=== PATIENT | male | born 1940 | race Hispanic/Latino ===

== ENCOUNTER 2017-03-31 20:23 | Inpatient (IN) | payer MEDICARE ==
[2017-03-31 20:24] VITALS: BMI 29.2
--- NOTE | 2017-03-31 20:49 | ED PDOC ---
Arrival/HPI - General Chief Complaint: Chest Pain Time Seen by Provider: 03/31/17 20:35 Historian: Patient - History of Present Illness Narrative History of Present Illness (Text): 03/31/17 20:51 A 77 year old female, whose past medical history includes hypertension and CAD with stents, presents to the emergency department from home with chest pain prior to arrival. Patient describes it as burning and midsternal pain. Patient had a recent stent in 2011. Patient in mild discomfort currently. Patient notes took nitro prior to arrival. Patient denies any other complaints at this time. Time/Duration: Prior to Arrival Symptom Onset: Sudden Symptom Course: Unchanged Quality: Burning Activities at Onset: Rest Context: Home Associated Symptoms (Text): none Past Medical History - Provider Review Nursing Documentation Reviewed: Yes - Tetanus Immunization Tetanus Immunization: Unknown - Cardiac Hx Pacemaker: No - Pulmonary Hx Respiratory Disorders: No - Neurological Hx Paralysis: No - HEENT Hx HEENT Disorder: Yes - Renal Hx Renal Disorder: No - Endocrine/Metabolic Hx Endocrine Disorders: Yes Hx Diabetes Mellitus Type 2: Yes - Hematological/Oncological Hx Blood Transfusions: No Hx Blood Transfusion Reaction: No - Integumentary Hx Dermatological Disorder: No - Musculoskeletal/Rheumatological Hx Musculoskeletal Disorders: Yes (arthritis) - Gastrointestinal Hx Gastrointestinal Disorders: Yes - Genitourinary/Gynecological Hx Genitourinary Disorders: Yes (frequent urination) Hx Hematuria: Yes - Psychiatric Hx Emotional Abuse: No Hx Physical Abuse: No Hx Substance Use: No - Surgical History Other/Comment: CYSTOSCOPY - Anesthesia Hx Anesthesia Reactions: No Hx Malignant Hyperthermia: No - Suicidal Assessment Feels Threatened In Home Enviroment: No Family/Social History - Physician Review Nursing Documentation Reviewed: Yes Family/Social History: No Known Family HX Smoking Status: Never Smoked Hx Alcohol Use: No Hx Substance Use: No Hx Substance Use Treatment: No Allergies/Home Meds Allergies/Adverse Reactions: Allergies No Known Allergies Allergy (Verified 04/26/16 12:03) Home Medications: Home Meds Medication Instructions Recorded Confirmed Aspirin 81 mg PO DAILY 08/01/12 04/01/17 Isosorbide 20 mg PO QID 08/01/12 04/01/17 Mesalamine [Pentasa] 2,000 mg PO QID 08/01/12 04/01/17 Metoprolol Tartrate 50 mg PO BID 08/01/12 04/01/17 Ramipril [Altace] 10 mg PO DAILY 08/01/12 04/01/17 Clopidogrel [Plavix] 75 mg PO DAILY 06/17/14 04/01/17 Rosuvastatin Calcium [Crestor] 10 mg PO DAILY 04/23/16 04/01/17 Glipizide [Glipizide Xl] 10 mg PO DAILY 04/25/16 04/01/17 Metformin HCl [Metformin HCl] 500 mg PO BID 04/25/16 04/01/17 Review of Systems - Physician Review All systems were reviewed & negative as marked: Yes - Review of Systems Constitutional: absent: Fevers Respiratory: absent: SOB Cardiovascular: Chest Pain Physical Exam Vital Signs Reviewed: Yes Vital Signs Temp Pulse Resp BP Pulse Ox 04/01/17 01:44 85 20 147/69 97 03/31/17 20:38 97.9 F 97 H 16 155/83 H 99 Temperature: Afebrile Blood Pressure: Hypertensive Pulse: Regular Respiratory Rate: Normal Appearance: Positive for: Non-Toxic, Comfortable, Other (obese) Pain Distress: None Mental Status: Positive for: Alert and Oriented X 3 - Systems Exam Head: Present: Atraumatic, Normocephalic Pupils: Present: PERRL Extroacular Muscles: Present: EOMI Conjunctiva: Present: Normal Mouth: Present: Moist Mucous Membranes Neck: Present: Normal Range of Motion Respiratory/Chest: Present: Clear to Auscultation, Good Air Exchange. No: Respiratory Distress, Accessory Muscle Use Cardiovascular: Present: Regular Rate and Rhythm, Normal S1, S2. No: Murmurs Abdomen: Present: Normal Bowel Sounds. No: Tenderness, Distention, Peritoneal Signs Back: Present: Normal Inspection Upper Extremity: Present: Normal Inspection. No: Cyanosis, Edema Lower Extremity: Present: Normal Inspection. No: Edema Neurological: Present: GCS=15, CN II-XII Intact, Speech Normal Skin: Present: Warm, Dry, Normal Color. No: Rashes Psychiatric: Present: Alert, Oriented x 3, Normal Insight, Normal Concentration Medical Decision Making ED Course and Treatment: 03/31/17 20:43 Impression: A 77 year old male with chest pain. Differential Diagnosis included but are not limited to: Plan: -- EKG -- chest xray -- labs -- Urinalysis -- Aspirin -- Reassess and disposition Prior Visits: Notes and results from previous visits were reviewed. Patient last reported to the emergency department on 04/26/16 for evaluation of suprapubic pressure. Progress Notes: EKG: Ordered, reviewed, and independently interpreted the EKG. Rate : 98 BPM Rhythm : NSR Interpretation : Nonspecific ST/T wave changes, old RBBB block Comparison : No previous EKG for comparison. 03/31/17 22:39 pt chest pain free. cxr shows ?perihilar infiltrate as per vrad. pt reports mild cough and "post nasal drip". will cover empirically. - Lab Interpretations Lab Results: 03/31/17 21:00 03/31/17 21:00 Lab Results 03/31/17 21:50: Urine Color Yellow, Urine Appearance Clear, Urine pH 6.0, Ur Specific [place] 1.025, Urine Protein Negative, Urine Glucose (UA) 250 H, Urine Ketones Negative, Urine Blood Moderate H, Urine Nitrate Negative, Urine Bilirubin Negative, Urine Urobilinogen 0.2, Ur Leukocyte Esterase Negative, Urine RBC 2 - 5, Urine WBC 0 - 2, Ur Epithelial Cells 0 - 2 03/31/17 21:00: Sodium 137, Potassium 4.6, Chloride 102, Carbon Dioxide 26, Anion Gap 14, BUN 24 H, Creatinine 1.1, Est GFR ( Amer) > 60, Est GFR ( Non-Af Amer) > 60, Random Glucose 288 H, Calcium 9.4, Magnesium 1.6 L, Total Bilirubin 0.6, AST 28, ALT 40, Alkaline Phosphatase 45, Lactate Dehydrogenase 323 L, Total Creatine Kinase 112, Troponin I 0.01, Total Protein 6.4, Albumin 4.0, Globulin 2.4, Albumin/Globulin Ratio 1.7 03/31/17 21:00: PT 11.7, INR 1.08, APTT 27.1 03/31/17 21:00: WBC 6.0, RBC 3.45 L, Hgb 12.3 L, Hct 35.6 L, MCV 103.2, MCH 35.7 H, MCHC 34.6, RDW 13.3, Plt Count 125, MPV 11.3 H, Gran % 69.4 H, Lymph % ( Auto) 20.9 L, [place] % (Auto) 7.2 H, Eos % (Auto) 2.3, Baso % (Auto) 0.2, Gran # 4.14, Lymph # 1.3, [place] # 0.4, Eos # 0.1, Baso # 0.01 I have reviewed the lab results: Yes - RAD Interpretation Radiology Orders: 03/31/17 20:41 CHEST PORTABLE [RAD] Stat - EKG Interpretation Interpreted by ED Physician: Yes Type: 12 lead EKG - Medication Orders Current Medication Orders: Aspirin (Aspirin Chewable) 81 mg PO DAILY [facility] Last Admin: 04/01/17 10:48 Dose: 81 mg Atorvastatin Calcium (Lipitor) 40 mg PO DAILY [facility] Last Admin: 04/01/17 10:48 Dose: 40 mg Clopidogrel Bisulfate (Plavix) 75 mg PO DAILY [facility] Last Admin: 04/01/17 10:48 Dose: 75 mg Glipizide (Glucotrol Xl) 10 mg PO DAILY [facility] Last Admin: 04/01/17 10:48 Dose: 10 mg Insulin Human Regular (Humulin R Low) 0 units SC [facility] PRN Reason: Protocol Last Admin: 04/01/17 12:04 Dose: 3 units Isosorbide Dinitrate (Isordil) 20 mg PO QID [facility] Levofloxacin (Levaquin) 500 mg PO DAILY [facility] Last Admin: 04/01/17 10:48 Dose: 500 mg Magnesium Oxide (Mag-Ox) 400 mg PO BID [facility] Last Admin: 04/01/17 10:48 Dose: 400 mg Mesalamine (Pentasa) 500 mg PO QID [facility] Last Admin: 04/01/17 10:48 Dose: 500 mg Metoprolol Tartrate (Lopressor) 50 mg PO BID [facility] Last Admin: 04/01/17 10:48 Dose: 50 mg Ramipril (Altace) 10 mg PO DAILY [facility] Last Admin: 04/01/17 10:48 Dose: 10 mg Discontinued Medications Aspirin (Aspirin) 325 mg PO STAT STA Stop: 03/31/17 20:42 Last Admin: 03/31/17 21:01 Dose: 325 mg Levofloxacin/Dextrose (Levaquin 750mg) 750 mg IVPB STAT STA Stop: 03/31/17 22:38 Last Admin: 03/31/17 23:16 Dose: 750 mg - Scribe Statement The provider has reviewed the documentation as recorded by the Loren Cerna Provider Scribe Attestation: All medical record entries made by the Scribe were at my direction and personally dictated by me. I have reviewed the chart and agree that the record accurately reflects my personal performance of the history, physical exam, medical decision making, and the department course for this patient. I have also personally directed, reviewed, and agree with the discharge instructions and disposition. Disposition/Present on Arrival - Present on Arrival Any Indicators Present on Arrival: No History of DVT/PE: No History of Uncontrolled Diabetes: No Urinary Catheter: No History of Decub. Ulcer: No History Surgical Site Infection Following: None - Disposition Have Diagnosis and Disposition been Completed?: Yes Diagnosis: Chest pain Disposition: HOSPITALIZED Disposition Time: 22:40 Patient Problems: Current Active Problems Problem Status Onset Chest pain Acute Condition: STABLE
[2017-03-31 21:09] LABS: ADD MANUAL DIFF? NO
[2017-03-31 21:25] LABS: INR 1.08 (0.93-1.08); PARTIAL THROMBOPLASTIN TIME 27.1 Seconds (23.7-30.8)
[2017-03-31 21:30] LABS: ALB/GLOB RATIO 1.7 (1.1-1.8); ALKALINE PHOSPHATASE 45 U/L (38-133); ALT/SGPT 40 U/L (7-56); AST/SGOT 28 U/L (15-59); BILIRUBIN,TOTAL 0.6 mg/dL (0.2-1.3); BLOOD UREA NITROGEN 24 mg/dL (7-21); CALCIUM 9.4 mg/dL (8.4-10.5); CARBON DIOXIDE 26 mmol/L (21-33); CHLORIDE 102 mmol/L (98-107); GFR AFRICAN-AMERICAN > 60; GLUCOSE,RANDOM 288 mg/dL (70-110); MAGNESIUM 1.6 mg/dL (1.7-2.2); POTASSIUM 4.6 mmol/L (3.6-5.0); SODIUM 137 mmol/L (132-148); TOTAL PROTEIN 6.4 g/dL (5.8-8.3)
[2017-03-31 21:41] LABS: BASO # 0.01 K/mm3 (0.0-2.0); BASO % 0.2 % (0.0-3.0); EOS # 0.1 (0.0-0.7); EOS % 2.3 % (1.5-5.0); GRAN # 4.14 (1.4-6.5); GRAN % 69.4 % (50.0-68.0); HEMATOCRIT 35.6 % (42.0-52.0); LYMPH # 1.3 (1.2-3.4); LYMPH % 20.9 % (22.0-35.0); MEAN CELL VOLUME 103.2 fL (80.0-105.0); MEAN CORPUSCULAR HEMOGLOBIN 35.7 pg (25.0-35.0); MEAN CORPUSCULAR HGB CONC 34.6 g/dl (31.0-37.0); MEAN PLATELET VOLUME 11.3 fl (7.0-11.0); MONO # 0.4 (0.1-0.6); MONO % 7.2 % (1.0-6.0); PLATELET COUNT 125 10^3/uL (120.0-450.0); RED CELL DISTRIBUTION WIDTH 13.3 % (11.5-14.5)
[2017-03-31 22:04] LABS: TROPONIN I 0.01 ng/mL
[2017-03-31 22:09] LABS: URINE BILIRUBIN NEGATIVE (NEGATIVE); URINE BLOOD MODERATE (NEGATIVE); URINE GLUCOSE (UA) 250 mg/dL (NEGATIVE); URINE KETONE NEGATIVE (NEGATIVE); URINE LEUKOCYTE ESTERASE NEGATIVE Leu/uL (NEGATIVE); URINE PROTEIN NEGATIVE mg/dL (<30 mg/dL); URINE UROBILINOGEN 0.2 E.U./dL (<1 E.U./dL)
[2017-03-31 22:10] LABS: URINE APPEARANCE CLEAR (CLEAR); URINE COLOR YELLOW (YELLOW)
--- NOTE | 2017-03-31 22:35 | RAD ---
EXAM: XR Chest, 1 View CLINICAL HISTORY: 77 years old, male; Pain; Chest pain; Additional info: Cp TECHNIQUE: Frontal view of the chest. EXAM DATE/TIME: 03/31/2017 8:41 PM COMPARISON: No relevant prior studies available. FINDINGS: The mediastinal cardiac silouette is normal in size. There are increased markings in the right perihilar region concerning for developing infectious infiltrate. No effusions are identified. The osseous structures are normal. IMPRESSION: Probable right perihilar infiltrate. Clinical correlation recommended.
[2017-03-31 22:37] LABS: URINE EPITHELIAL CELLS 0 - 2 /hpf (0-5); URINE WBC 0 - 2 /hpf (0-6)
[2017-03-31] MEDS ORDERED: levoFLOXacin 750 mg in D5W 150 ML BAG IVPB STA (22:37)
--- NOTE | 2017-04-01 10:30 | HP ---
CHIEF COMPLAINT AND HISTORY OF PRESENT ILLNESS: This is a 77-year-old male who is coming into the [facility] with a past medical history of coronary artery disease with stents and hypertension, complaini ng of chest pain. The patient says he was having substernal chest pain. It was more of a burning se nsation. He says he took his nitro, but did not completely resolve his pain. He has no nausea, no f trenton, no chills, no abdominal pain, no back pain, no dysuria or frequency. It was 4/10. REVIEW OF SYSTEMS: All other review of symptoms are within normal limits except as mentioned. ALLERGIES: No known drug allergies. HOME MEDICATIONS: Aspirin, isosorbide, mesalamine, metoprolol, ramipril, Plavix, Crestor, glipizide, metformin. PAST MEDICAL HISTORY: 1. Coronary artery disease with stent. 2. Diabetes type 2. 3. Colitis. PAST SURGICAL HISTORY: Cholecystectomy. SOCIAL HISTORY: He does not smoke. He drinks socially. He is retired. He lives at home with his w ene. FAMILY HISTORY: His mother in her late 80s of an enlarged heart. Father had an NE in his early 40s. He does have a history of diabetes in the family. PHYSICAL EXAMINATION: VITAL SIGNS: He has a temperature of 98.6, pulse of 92, blood pressure 125/56, respirations 20, O2 s aturation 96%. Height is 5 feet 7, weight is 188 pounds, BMI is 29.4. GENERAL: Patient lying in bed, flat, and in no apparent distress. HEAD AND NECK EXAM: Atraumatic, normocephalic. Conjunctivae are pink. Throat clear and mouth with moist mucosa. Oropharynx benign. EYES: Extraocular movements are intact. PERRLA. NECK: Supple. No JVD, thyromegaly, or adenopathy. No bruits. HEART: S1 and S2 regular rate and rhythm. No murmurs, rubs, or gallops. LUNGS: Clear to auscultation bilaterally. No wheezing rales or rhonchi appreciated. No retraction s on exam. ABDOMEN: Soft, nontender, nondistended. Bowel sounds are positive in all quadrants. No rebound. No hepatosplenomegaly. EXTREMITIES: No cyanosis, clubbing, or edema. NEURO: No facial asymmetry, tongue is midline, no uvula deviation. Power is 5/5 in upper extremity and 5/5 in lower extremity. Sensation is normal in upper extremity and lower extremity. PSYCH: Awake, alert, oriented x3. No anxiety or depression symptoms. Good insight. Normal affec t. : No CVA tenderness VASCULAR: 2+ pulses in carotid and pedal pulses. SKIN: No erythema or abnormal nodules noted. SPINE: Normal curvature. LYMPHADENOPATHY: No anterior cervical or posterior cervical adenopathy. No inguinal adenopathy. LABORATORY DATA: White count of 6.0, hemoglobin 12.3, platelet count is 125. He has an INR of 1.08. His troponin is 0.01. Creatinine is 1.1. He has a urine that shows blood that is moderate, nitri flakita are negative, bilirubin is negative. Chest x-ray done shows probable right perihilar infiltrate. EKG done shows a heart rate of 98, sinus rhythm. No ST-T changes. ASSESSMENT: 1. Chest pain. 2. Possible pneumonia, community acquired. 3. Diabetes type 2. 4. Dyslipidemia. 5. Coronary artery disease. 6. Hypertension. PLAN: The patient is going to be admitted to the hospital. He is going to be evaluated by Dr. Fredis cabrera. The patient is going to have a repeat troponin. He is going to be on aspirin. He is going to be on ramipril for his hypertension. He is going to continue with his isosorbide. He is on Lipitor fo r dyslipidemia. He is going to be on his Plavix. He is on mesalamine. This will be continued. He is on a heart healthy diet. He was given Levaquin for antibiotics. We will await further input from cardiology. Dominguez Garcia MD cc: [id number] TT: 04/01/2017 10:28:47 ana maría
--- NOTE | 2017-04-01 10:44 | CARD ---
APPROVED REPORT EKG Measurement Heart [id number] <Conclusion> Normal sinus rhythm Right bundle branch block Left posterior fascicular block Bifascicular block Possible Inferior infarct, old STTW changes
[2017-04-01] MEDS: levoFLOXacin 500 MG TAB PO SCH (10:48)
[2017-04-01] MEDS: Magnesium Oxide 400 mg Tab UD PO SCH ×2 (10:48→17:49)
[2017-04-01] MEDS: Mesalamine ER Cap 500 MG PO SCH ×4 (10:48→23:13)
[2017-04-01] MEDS: GlipiZIDE 10 mg SR Tab PO SCH (10:48)
--- NOTE | 2017-04-01 11:04 | CON ---
DATE: 04/01/2017 INDICATIONS: Chest pain, NSTEMI. HISTORY OF PRESENT ILLNESS: This is a 77-year-old man, well known to me, who presented yesterday with a sudden onset of an upper substernal discomfort which did not respond to nitroglycerin at home. He came to the Emergency Room and was evaluated and admitted to telemetry. His second troponin is elevated. The chest pain has resolved. He feels comfortable this morning. There was no shortness of breath, orthopnea, PND, syncope, presyncope, lightheadedness, dizziness, vertigo, palpitations, edema, claudication. PAST MEDICAL HISTORY: Notable for coronary artery disease. He has a remote myocardial infarction and multiple coronary artery stents. He has a known occluded circumflex artery. He has a history of hypertension, diabetes, right bundle branch block, renal stones, GERD and gallbladder surgery. There is no history of rheumatic fever, congestive heart failure, arrhythmia, stroke, TIA or gout. He does have moderate LV dysfunction with an LV ejection fraction of about 35%. MEDICATIONS: At the time of admission included aspirin, isosorbide, Pentaza, metoprolol, ramipril, Plavix, Crestor, glipizide, metformin. ALLERGIES: There are no medication allergies reported. He lives at home. He is retired. He does not smoke cigarettes. He does not drink alcohol significantly. FAMILY HISTORY: Noncontributory. REVIEW OF SYSTEMS: A 10-point otherwise unremarkable except as noted above. PHYSICAL EXAMINATION: GENERAL: He is a well-developed male, lying in bed on telemetry, in no acute distress. VITAL SIGNS: Notable for sinus rhythm at 92 beats per minute. He is afebrile. Blood pressure 125/56, respirations 20, O2 sat 96% on room air. HEENT: Reveals no neck vein distention, thyromegaly, or carotid bruits. Mucous membranes moist. Conjunctivae pink. NECK: Supple. LUNG HILLMAN: Few scattered rhonchi. HEART: Revealed normal first and second heart sounds. There is a soft systolic murmur along the left sternal border. PMI is not palpable. ABDOMEN: Soft, bowel sounds present. No mass, organomegaly, tenderness, rebound, guarding. No CVA tenderness. No palpable abdominal aortic aneurysm. EXTREMITIES: Revealed no cyanosis, clubbing, or edema. NEUROLOGIC: He was awake, alert and oriented. SKIN: Warm and dry. No rash or cellulitis. PSYCHIATRIC: Normal as to mood and affect. LABORATORY AND IMAGING: A chest x-ray revealed a probable right perihilar infiltrate. EKG revealed sinus rhythm with right bundle branch block, ST-T wave changes are noted. White count normal, platelet count normal, hemoglobin 12.3, hematocrit 35.6. PT, INR, PTT unremarkable. Electrolytes, BUN, creatinine, blood sugar unremarkable. Follow up blood sugar 205. Magnesium 1.6. LFTs unremarkable. CK 112. Troponin 0.01, repeat 2.20. Urinalysis is abnormal as noted. IMPRESSION: This is a 77-year-old man who came in with typical chest pain, consistent with chest pain he had prior to previous stenting. His second troponin is elevated. Additionally, there is a right perihilar infiltrate on his portable chest x-ray. His urinalysis is abnormal. At this time, I have discussed the case with Dr. Garcia. We will plan a cardiac catheterization, probably on Tuesday. We will get serial EKGs and enzymes. I will continue his usual cardiac meds including aspirin, ramipril, isosorbide, Lipitor, metoprolol and Plavix. We will hold metformin pending the cardiac catheterization on Tuesday. He is getting antibiotics. A followup chest x-ray will be arranged. Urine should be cultured. We will replace magnesium. He can be out of bed to a chair. We will monitor I's and O's. We will check stool for occult blood. I will follow along with you. I will make additional recommendations based on his clinical course. Ta Guerrier MD cc: [id number] TT: 04/01/2017 11:04:04 Confirmation # [id number] Dictation # [id number] MTDD
[2017-04-01] MEDS: Insulin Reg-LOW-Coverage SC SCH ×3 (12:04→21:59)
--- NOTE | 2017-04-01 14:43 | CARD ---
APPROVED REPORT EKG Measurement Heart [id number] [place] [id number] [id number] <Conclusion> Sinus rhythm with 1st degree AV block Right bundle branch block Left posterior fascicular block Bifascicular block Inferior infarct, age undetermined T wave abnormality, consider lateral ischemia
[2017-04-02 07:46] LABS: TROPONIN I 0.88 ng/mL
--- NOTE | 2017-04-02 08:18 | CP.PCM.PN ---
Subjective - Date & Time of Evaluation Date of Evaluation: 04/02/17 Time of Evaluation: 07:00 - Subjective Subjective: Stable on 2R. No CP or SOB. V/S noted. RSR PE: Lungs: clear Cor.: S1S2 Abd.: soft Ext.: no edema Neuro.: alert Labs noted. trop = 0.88 ECG 04/01 noted: RSR,RBBB, LPHB, IMI, STTW changes Objective - Vital Signs/Intake and Output Vital Signs (last 24 hours): Temp Pulse Resp BP Pulse Ox 98.4 F 74 20 111/58 L 94 L 04/02/17 06:00 04/02/17 06:00 04/02/17 06:00 04/02/17 06:00 04/02/17 06:00 - Medications Medications: Current Medications Aspirin (Aspirin Chewable) 81 mg PO DAILY [facility] Last Admin: 04/01/17 10:48 Dose: 81 mg Atorvastatin Calcium (Lipitor) 40 mg PO DAILY [facility] Last Admin: 04/01/17 10:48 Dose: 40 mg Clopidogrel Bisulfate (Plavix) 75 mg PO DAILY [facility] Last Admin: 04/01/17 10:48 Dose: 75 mg Glipizide (Glucotrol Xl) 10 mg PO DAILY [facility] Last Admin: 04/01/17 10:48 Dose: 10 mg Insulin Human Regular (Humulin R Low) 0 units SC [facility] PRN Reason: Protocol Last Admin: 04/01/17 21:59 Dose: Not Given Isosorbide Dinitrate (Isordil) 20 mg PO QID [facility] Last Admin: 04/01/17 23:14 Dose: 20 mg Levofloxacin (Levaquin) 500 mg PO DAILY [facility] Last Admin: 04/01/17 10:48 Dose: 500 mg Magnesium Oxide (Mag-Ox) 400 mg PO BID [facility] Last Admin: 04/01/17 17:49 Dose: 400 mg Mesalamine (Pentasa) 500 mg PO QID [facility] Last Admin: 04/01/17 23:13 Dose: 500 mg Metoprolol Tartrate (Lopressor) 50 mg PO BID [facility] Last Admin: 04/01/17 17:49 Dose: 50 mg Ramipril (Altace) 10 mg PO DAILY [facility] Last Admin: 04/01/17 10:48 Dose: 10 mg - Labs Labs: PT 11.7 Seconds (9.9-11.8) 03/31/17 21:00 INR 1.08 (0.93-1.08) 03/31/17 21:00 APTT 27.1 Seconds (23.7-30.8) 03/31/17 21:00 Assessment and Plan - Assessment and Plan (Free Text) Plan: Assessment: CP/+ trop/NSTEMI CAD/old MT/PCIs/Occluded C.A. HBP Diabetes RBBB Renal Stones GERD GB Surgery Plan: Hold metformin for cardiac cath/poss. PCI on Tuesday. Check echo. Replace Mg.++ OOB as ang. Check BMP and Mg.++ level in AM.
[2017-04-02] MEDS: Insulin Reg-LOW-Coverage SC SCH ×4 (08:27→21:37)
[2017-04-02] MEDS ORDERED: POLYETHYLENE GLYCOL 3350 17 GM/Dose PACKET PO PRN (08:46)
[2017-04-02] MEDS ORDERED: POLYETHYLENE GLYCOL 3350 17 GM/Dose PACKET PO ONE (08:46)
[2017-04-02] MEDS: Magnesium Oxide 400 mg Tab UD PO SCH ×2 (09:31→17:25)
[2017-04-02] MEDS: GlipiZIDE 10 mg SR Tab PO SCH (09:31)
[2017-04-02] MEDS: levoFLOXacin 500 MG TAB PO SCH (09:31)
--- NOTE | 2017-04-02 09:34 | PN ---
DATE: 04/02/2017 SUBJECTIVE: The patient has no complaints of any chest pain or shortness of breath, no headaches or dizziness. PHYSICAL EXAMINATION: VITAL SIGNS: Temperature is 98.4, pulse is 74, blood pressure 111/50, respirations 20, O2 saturation 94%. GENERAL: The patient comfortable, in no acute distress. HEENT: Anicteric sclerae. Moist mucosa. NECK: No JVD or adenopathy. CARDIAC: S1/S2. No murmurs. No rubs. Regular. RESPIRATORY: Clear to auscultation bilaterally. No wheezes, rales, or rhonchi. Good air entry. ABDOMEN: Bowel sounds are positive, soft, nontender, and nondistended. EXTREMITIES: No edema. Has 1+ pulses. LABORATORY DATA: Troponin is 0.8. ASSESSMENT: 1. Non-ST elevation myocardial infarction. 2. Community-acquired pneumonia. 3. Diabetes type 2. 4. Dyslipidemia. 5. Coronary artery disease. 6. Hypertension. PLAN: The patient is currently comfortable. He is on glipizide for diabetes. Metformin has been pl aced on hold, is on Levaquin for antibiotics. He is on Lipitor for dyslipidemia. The patient is on magnesium for replacement. The patient is going to continue with Plavix. He says he has constipatio n, I will give him a dose of MiraLax. He is going to have a cardiac catheterization on Tuesday. Dominguez Garcia MD cc: [id number] TT: 04/02/2017 09:33:30 Confirmation # [id number] Dictation # [id number] jn
[2017-04-02] MEDS: Mesalamine ER Cap 500 MG PO SCH ×4 (09:37→21:37)
--- NOTE | 2017-04-02 09:45 | CARD ---
APPROVED REPORT EXAM: Two-dimensional and M-mode echocardiogram with Doppler and color Doppler. Other Information Quality : FairRhythm : INDICATION Acute DE 2D DIMENSIONS IVSd1.2 (0.7-1.1cm)LVDd4.7 (3.9-5.9cm) PWd1.1 (0.7-1.1cm)LVDs3.3 (2.5-4.0cm) FS (%) 30.7 %LVEF (%)58.0 (>50%) M-Mode DIMENSIONS Left Atrium (MM)3.90 (2.5-4.0cm)Aortic Root3.30 (2.2-3.7cm) Aortic Cusp Exc.1.70 (1.5-2.0cm) Aortic Valve AoV Peak Plvsotdk123.0cm/Sergei P 1/2 [id number] Mitral Valve MV E Kscatlvu22.2cm/sMV A Rqfbxeid48.3cm/sE/A ratio0.7 TDI Lateral E' Peak V5.07cm/sMedial E' Peak V4.29cm/sE/Lateral E'12.1 E/Medial E'14.3 Tricuspid Valve TR Peak Njanvjco356ga/sRAP [id number] Peak Gr.7mmHg [id number] LEFT VENTRICLE The left ventricle is normal size. There is normal left ventricular wall thickness. The left ventricular ejection fraction is within the normal range. The inferobasalar segment and the apex are akinetic. RIGHT VENTRICLE The right ventricle is normal size. ATRIA The left atrium size is normal. The right atrium size is normal. The interatrial septum is intact with no evidence for an atrial septal defect. AORTIC VALVE The aortic valve is mildly calcified. There is mild aortic regurgitation. MITRAL VALVE The mitral valve is normal in structure. Mitral regurgitation is trace. TRICUSPID VALVE The tricuspid valve is normal in structure. There is trace tricuspid regurgitation. PULMONIC VALVE The pulmonic valve is not well visualized. GREAT VESSELS The aortic root is normal in size. PERICARDIAL EFFUSION There is no pericardial effusion. <Conclusion> The left ventricle is normal size. There is normal left ventricular wall thickness. The left ventricular ejection fraction is within the normal range. The inferobasalar segment and the apex are akinetic. There is mild aortic regurgitation.
[2017-04-03 07:43] LABS: BLOOD UREA NITROGEN 18 mg/dL (7-21); CALCIUM 9.2 mg/dL (8.4-10.5); CARBON DIOXIDE 25 mmol/L (21-33); CHLORIDE 103 mmol/L (95-110); GFR AFRICAN-AMERICAN > 60; GLUCOSE,RANDOM 185 mg/dL (70-110); MAGNESIUM 2.1 mg/dL (1.7-2.2); POTASSIUM 4.6 mmol/L (3.6-5.0); SODIUM 137 mmol/L (132-148)
--- NOTE | 2017-04-03 08:07 | CP.PCM.PN ---
Subjective - Date & Time of Evaluation Date of Evaluation: 04/03/17 Time of Evaluation: 07:00 - Subjective Subjective: Stable on 2R. No CP or SOB. V/S noted. RSR PE: Lungs: clear Cor.: S1S2 Abd.: soft Ext.: no edema Neuro.: alert Labs 04/02 noted. BMP OK, Mg.++= 2.1 ECG 04/01 noted: RSR,RBBB, LPHB, IMI, STTW changes Echo: NL overall EF with inferobasalar and apical akinesis, Mild AI. Objective - Vital Signs/Intake and Output Vital Signs (last 24 hours): Temp Pulse Resp BP Pulse Ox 98.7 F 81 18 118/62 97 04/03/17 06:00 04/03/17 06:00 04/03/17 06:00 04/03/17 06:00 04/03/17 06:00 Intake and Output: 04/03/17 04/03/17 06:59 18:59 Intake Total 840 Output Total 1100 Balance -260 - Medications Medications: Current Medications Aspirin (Aspirin Chewable) 81 mg PO DAILY [facility] Last Admin: 04/02/17 09:31 Dose: 81 mg Atorvastatin Calcium (Lipitor) 40 mg PO DAILY [facility] Last Admin: 04/02/17 09:31 Dose: 40 mg Clopidogrel Bisulfate (Plavix) 75 mg PO DAILY [facility] Last Admin: 04/02/17 09:31 Dose: 75 mg Glipizide (Glucotrol Xl) 10 mg PO DAILY [facility] Last Admin: 04/02/17 09:31 Dose: 10 mg Insulin Human Regular (Humulin R Low) 0 units SC [facility] PRN Reason: Protocol Last Admin: 04/02/17 21:37 Dose: Not Given Isosorbide Dinitrate (Isordil) 20 mg PO QID [facility] Last Admin: 04/02/17 21:38 Dose: 20 mg Levofloxacin (Levaquin) 500 mg PO DAILY [facility] Last Admin: 04/02/17 09:31 Dose: 500 mg Magnesium Oxide (Mag-Ox) 400 mg PO BID [facility] Last Admin: 04/02/17 17:25 Dose: 400 mg Mesalamine (Pentasa) 500 mg PO QID [facility] Last Admin: 04/02/17 21:37 Dose: Not Given Metoprolol Tartrate (Lopressor) 50 mg PO BID [facility] Last Admin: 04/02/17 17:25 Dose: 50 mg Polyethylene Glycol (Miralax) 17 gm PO BID PRN PRN Reason: Constipation Ramipril (Altace) 10 mg PO DAILY [facility] Last Admin: 04/02/17 09:31 Dose: 10 mg - Labs Labs: 04/03/17 07:26 PT 11.7 Seconds (9.9-11.8) 03/31/17 21:00 INR 1.08 (0.93-1.08) 03/31/17 21:00 APTT 27.1 Seconds (23.7-30.8) 03/31/17 21:00 Assessment and Plan - Assessment and Plan (Free Text) Plan: Assessment: CP/+ trop/NSTEMI CAD/old [place]/PCIs/Occluded C.A. HBP Diabetes RBBB Renal Stones GERD GB Surgery Plan: Hold metformin for cardiac cath/poss Tuesday. Hold Januvia in AM for cath/poss. Tuesday PM OOB as ang.
[2017-04-03] MEDS: Insulin Reg-LOW-Coverage SC SCH ×4 (08:31→21:23)
[2017-04-03] MEDS: levoFLOXacin 500 MG TAB PO SCH (09:12)
[2017-04-03] MEDS: GlipiZIDE 10 mg SR Tab PO SCH (09:12)
[2017-04-03] MEDS: Magnesium Oxide 400 mg Tab UD PO SCH ×2 (09:12→17:50)
[2017-04-03] MEDS: Mesalamine ER Cap 500 MG PO SCH ×4 (09:12→21:15)
--- NOTE | 2017-04-03 11:30 | PN ---
DATE: 04/03/2017 SUBJECTIVE: The patient has no complaints of any chest pain, no shortness of breath, no headaches, n o dizziness. PHYSICAL EXAMINATION: VITAL SIGNS: Temperature is 98.7, pulse is 79, blood pressure 118/62, respiration is 18. GENERAL: The patient comfortable, in no acute distress. HEENT: Anicteric sclerae. Moist mucosa. NECK: No JVD or adenopathy. CARDIAC: S1/S2. No murmurs. No rubs. Regular. RESPIRATORY: Clear to auscultation bilaterally. No wheezes, rales, or rhonchi. Good air entry. ABDOMEN: Bowel sounds are positive, soft, nontender, and nondistended. EXTREMITIES: No edema. Has 1+ pulses. ASSESSMENT: 1. Non-ST elevation myocardial infarction. 2. Coronary artery disease. 3. Dyslipidemia. 4. Community-acquired pneumonia. 5. Diabetes type 2. 6. Hypertension. PLAN: The patient is currently on aspirin and metoprolol for the non-ST elevation myocardial infarct ion. The patient is going to be on isosorbide for chest pain. The patient is on insulin coverage fo r his diabetes. The patient is going to continue with mesalamine for history of colitis. He is also on Plavix. The patient is on glipizide for diabetes as well. He is on liquid diet starting tomorro w morning for breakfast. Dominguez Garcia MD cc: [id number] TT: 04/03/2017 11:29:09 Confirmation # [id number] Dictation # [id number]
[2017-04-04] MEDS: Mesalamine ER Cap 500 MG PO SCH ×3 (08:10→22:21)
--- NOTE | 2017-04-04 08:35 | CP.PCM.PN ---
Subjective - Date & Time of Evaluation Date of Evaluation: 04/04/17 Time of Evaluation: 07:00 - Subjective Subjective: Stable on 2R. No CP or SOB. V/S noted. RSR PE: Lungs: clear Cor.: S1S2 Abd.: soft Ext.: no edema Neuro.: alert I/O = 660/800 Labs 04/02 noted. BMP OK, Mg.++= 2.1 ECG 04/01 noted: RSR,RBBB, LPHB, IMI, STTW changes Echo: NL overall EF with inferobasalar and apical akinesis, Mild AI. Objective - Vital Signs/Intake and Output Vital Signs (last 24 hours): Temp Pulse Resp BP Pulse Ox 98 F 74 20 107/63 97 04/04/17 05:41 04/04/17 05:41 04/04/17 05:41 04/04/17 05:41 04/04/17 05:41 Intake and Output: 04/04/17 04/04/17 06:59 18:59 Intake Total 660 Output Total 800 Balance -140 - Medications Medications: Current Medications Aspirin (Aspirin Chewable) 81 mg PO DAILY [facility] Last Admin: 04/03/17 09:12 Dose: 81 mg Atorvastatin Calcium (Lipitor) 40 mg PO DAILY [facility] Last Admin: 04/03/17 09:12 Dose: 40 mg Clopidogrel Bisulfate (Plavix) 75 mg PO DAILY [facility] Last Admin: 04/03/17 09:12 Dose: 75 mg Glipizide (Glucotrol Xl) 10 mg PO DAILY [facility] Last Admin: 04/03/17 09:12 Dose: 10 mg Insulin Human Regular (Humulin R Low) 0 units SC [facility] PRN Reason: Protocol Last Admin: 04/03/17 21:23 Dose: Not Given Isosorbide Dinitrate (Isordil) 20 mg PO QID [facility] Last Admin: 04/03/17 21:15 Dose: 20 mg Levofloxacin (Levaquin) 500 mg PO DAILY [facility] Last Admin: 04/03/17 09:12 Dose: 500 mg Magnesium Oxide (Mag-Ox) 400 mg PO BID [facility] Last Admin: 04/03/17 17:50 Dose: 400 mg Mesalamine (Pentasa) 500 mg PO QID [facility] Last Admin: 04/03/17 21:15 Dose: 500 mg Metoprolol Tartrate (Lopressor) 50 mg PO BID [facility] Last Admin: 04/03/17 17:50 Dose: 50 mg Polyethylene Glycol (Miralax) 17 gm PO BID PRN PRN Reason: Constipation Ramipril (Altace) 10 mg PO DAILY [facility] Last Admin: 04/03/17 09:12 Dose: 10 mg - Labs Labs: 04/03/17 07:26 PT 11.7 Seconds (9.9-11.8) 03/31/17 21:00 INR 1.08 (0.93-1.08) 03/31/17 21:00 APTT 27.1 Seconds (23.7-30.8) 03/31/17 21:00 Assessment and Plan - Assessment and Plan (Free Text) Plan: Assessment: CP/+ trop/NSTEMI CAD/old [place]/PCIs/Occluded C.A. HBP Diabetes RBBB Renal Stones GERD GB Surgery Plan: Hold metformin for cardiac cath/possible PCI today Hold Januvia in AM for cath/possible PCI today Additional recommendations to follow. OOB as ang.
[2017-04-04] MEDS: Insulin Reg-LOW-Coverage SC SCH ×4 (08:56→22:14)
[2017-04-04] MEDS: Magnesium Oxide 400 mg Tab UD PO SCH ×2 (09:34→18:22)
[2017-04-04] MEDS: levoFLOXacin 500 MG TAB PO SCH (09:34)
[2017-04-04] MEDS ORDERED: Lidocaine 2% Inj (20ml) ONE (14:23)
[2017-04-04] MEDS ORDERED: Iohexol 350mgl/ml 50 ML ONE (14:24)
[2017-04-04] MEDS ORDERED: Iodixanol 320 MG/ML 200 ML BOTTLE IV ONE (14:24)
[2017-04-04] MEDS ORDERED: Iodixanol 320 MG/ML 100 ML BOTTLE IV ONE (14:24)
[2017-04-04] MEDS ORDERED: Midazolam 2 MG/2 ML VIAL ONE ×2 (14:51→15:29)
[2017-04-04] MEDS ORDERED: Sodium Chloride 0.9% 1,000 ML IV SCH (16:15)
--- NOTE | 2017-04-04 20:11 | CARDCATH ---
PROCEDURE DATE: 04/04/2017 PROCEDURES: 1. Selective left and right coronary angiography. 2. Left ventriculography. 3. Percutaneous coronary intervention of mid and distal left anterior descending with drug-eluting s tents. 4. Right femoral arteriography. 5. Angio-Seal deployment. HISTORY: This is a 77-year-old male with known coronary artery disease, status post prior PCI, admit leanna with recent small [id number] elevation myocardial infarction. Cardiac catheterization was ad vised. FINDINGS: HEMODYNAMICS: The aortic pressure was 110/70 with left ventricular pressure of 110/16. CORONARY ANATOMY: 1. Left main stem had a mild distal tapering. 2. Left anterior descending artery was moderately calcified. There was a 70% stenosis in the early mid segment of the vessel followed by an 80% stenosis in the late mid segment of the vessel, and dist ally there was a 95% stenosis present. ABHISHEK grade II flow was noted distally and the distal LAD did not fill completely. 3. The left circumflex artery was subtotally occluded proximally and occluded in its mid portion. T he obtuse marginal branches filled faintly via [id number] collaterals and to a moderate degree via [id number] collaterals. 4. The right coronary artery was dominant. This had a 40% in-stent restenosis in the mid portion of the vessel. Distally, the stent in the distal RCA and PDA were widely patent. Moderate diffuse dis ease in a [place] PDA distally were noted. Again, collaterals were seen from the distal RCA to the ob tuse marginal branches. LEFT VENTRICULOGRAPHY: A hand injection was performed in the left ventricle revealing normal wall mo tion with ejection fraction of 60%. There was no aortic valve gradient noted on right catheter pullb ack. Mitral regurgitation was not assessed. CORONARY INTERVENTION: Given the above findings, attempted PCI of the LAD lesions was then performed . A [place] wire was advanced into the distal LAD and initial inflations performed in the distal segm ent with the use of a 2.0 x 10 mm balloon. Following this, the balloon catheter was withdrawn and a 2.5 mm x 12 mm Resolute drug-eluting stent was advanced and inflated to 9 atmospheres for 45 seconds. Stent balloon was removed and following this a 2.75 x 18 mm Resolute drug-eluting stent was advance d into the late mid portion of the vessel. This was inflated to 14 atmospheres. However, the proxim al segment of the vessel appeared under deployed. The stent balloon was removed and a 2.75 x 9 mm no ncompliant balloon was advanced into the more proximal segment of the stented segment and inflated to 14 atmospheres. There was 10% residual stenosis following the intervention. Following this, the sa me balloon was used to dilate the early mid segment of the vessel to 14 atmospheres. Following this , a 3.0 x 18 mm Resolute drug-eluting stent was advanced into the early mid segment of the vessel and inflated to 14 atmospheres for 45 seconds. There was 0% residual stenosis following the interventio n. Intracoronary nitroglycerin was infused. ABHISHEK grade III flow was present at the end of the proce dure with brisk distal filling. RIGHT FEMORAL ARTERIOGRAPHY: Right femoral arteriogram was performed in the [place] protection. This r evealed no evidence of significant disease and appropriate level of arterial puncture. The puncture site was then closed with deployment of an Angio-Seal device. CONCLUSION: 1. Severe early mid and late mid, as well as distal, RCA stenosis. Successful PCI of LAD with drug- eluting stents, as above. 2. Chronically occluded left circumflex artery. 3. Patent RCA stents. RECOMMENDATIONS: Aspirin and Plavix therapy should be continued indefinitely. Continued risk factor control is advised. Dennis Duran MD cc: [id number] TT: 04/04/2017 20:10:53 daija
--- NOTE | 2017-04-04 20:32 | CARD ---
APPROVED REPORT EKG Measurement Heart [id number] MT [id number] <Conclusion> Sinus rhythm with 1st degree AV block Possible Left atrial enlargement Right bundle branch block Left posterior fascicular block Bifascicular block Inferior infarct, age undetermined Abnormal ECG
--- NOTE | 2017-04-04 21:17 | DS ---
The patient is a 77-year-old male who came into the hospital with a non-ST elevation VA. The patient was started on aspirin, beta blockers. He had improvement of his symptoms. He is going for cardiac cath that is going to be done today. He also had a mildly abnormal chest x-ray. No white count or fever. He was placed on antibiotics for possible early pneumonia. He is comfortable. He has no com plaint of any chest pain or shortness of breath. No headaches or dizziness. We will await final res ults of the cardiac cath to decide about whether the patient is going to be discharged home today or tomorrow. No headaches, no dizziness, no nausea, no vomiting. PHYSICAL EXAMINATION: VITAL SIGNS: Temperature is 98, pulse is 74, blood pressure is 107/63, respirations 20, O2 saturatio n 97%. Height is 5 feet 7 inches, weight is 179 pounds. BMI is 28. GENERAL: Patient lying in bed, flat, and in no apparent distress. HEAD AND NECK EXAM: Atraumatic, normocephalic. Conjunctivae are pink. Throat clear and mouth with moist mucosa. Oropharynx benign. EYES: Extraocular movements are intact. PERRLA. NECK: Supple. No JVD, thyromegaly, or adenopathy. No bruits. HEART: S1 and S2 regular rate and rhythm. No murmurs, rubs, or gallops. LUNGS: Clear to auscultation bilaterally. No wheezing rales or rhonchi appreciated. No retraction s on exam. ABDOMEN: Soft, nontender, nondistended. Bowel sounds are positive in all quadrants. No rebound. No hepatosplenomegaly. EXTREMITIES: No cyanosis, clubbing, or edema. NEURO: No facial asymmetry, tongue is midline, no uvula deviation. Power is 5/5 in upper extremity and 5/5 in lower extremity. Sensation is normal in upper extremity and lower extremity. PSYCH: Awake, alert, oriented x3. No anxiety or depression symptoms. Good insight. Normal affec t. : No CVA tenderness VASCULAR: 2+ pulses in carotid and pedal pulses. SKIN: No erythema or abnormal nodules noted. SPINE: Normal curvature. LYMPHADENOPATHY: No anterior cervical or posterior cervical adenopathy. No inguinal adenopathy. ASSESSMENT: 1. Non-ST elevation myocardial infarction. 2. Coronary artery disease. 3. Dyslipidemia. 4. Community-acquired pneumonia. 5. Diabetes type 2. 6. Hypertension. PLAN: The patient is currently comfortable. He is going to be on aspirin. He is on Levaquin for an tibiotics. He is on Lipitor for dyslipidemia. He is on metoprolol. He is going to continue with as pirin and Altace. He is on a liquid diet. CONDITION: Stable. ACTIVITIES: Increase as tolerated. Dominguez Garcia MD cc: [id number] TT: 04/04/2017 21:17:01 mn
[2017-04-05 00:58] VITALS: RESP 18
[2017-04-05 06:25] LABS: ADD MANUAL DIFF? NO
[2017-04-05 06:29] LABS: BASO # 0.02 K/mm3 (0.0-2.0); BASO % 0.2 % (0.0-3.0); EOS # 0.1 (0.0-0.7); EOS % 1.3 % (1.5-5.0); GRAN # 6.56 (1.4-6.5); GRAN % 77.9 % (50.0-68.0); HEMATOCRIT 37.5 % (42.0-52.0); LYMPH # 1.1 (1.2-3.4); LYMPH % 12.5 % (22.0-35.0); MEAN CELL VOLUME 101.4 fL (80.0-105.0); MEAN CORPUSCULAR HEMOGLOBIN 35.7 pg (25.0-35.0); MEAN CORPUSCULAR HGB CONC 35.2 g/dl (31.0-37.0); MEAN PLATELET VOLUME 11.2 fl (7.0-11.0); MONO # 0.7 (0.1-0.6); MONO % 8.1 % (1.0-6.0); PLATELET COUNT 138 10^3/uL (120.0-450.0); RED CELL DISTRIBUTION WIDTH 13.4 % (11.5-14.5); WHITE BLOOD COUNT 8.4 10^3/ul (4.5-11.0)
[2017-04-05 06:53] VITALS: TEMP 97.9; O2SAT 95
[2017-04-05 06:56] LABS: BLOOD UREA NITROGEN 17 mg/dL (7-21); CALCIUM 9.1 mg/dL (8.4-10.5); CARBON DIOXIDE 25 mmol/L (21-33); CHLORIDE 103 mmol/L (98-107); GFR AFRICAN-AMERICAN > 60; GLUCOSE,RANDOM 170 mg/dL (70-110); POTASSIUM 4.6 mmol/L (3.6-5.0); SODIUM 137 mmol/L (132-148)
[2017-04-05] MEDS: Insulin Reg-LOW-Coverage SC SCH (08:13)
--- NOTE | 2017-04-05 08:37 | CP.PCM.PN ---
Subjective - Date & Time of Evaluation Date of Evaluation: 04/05/17 Time of Evaluation: 07:00 - Subjective Subjective: Stable on 2R. No CP or SOB.He feels well. S/P cath PCI LAD with 3 RADHA yesterday. See report. V/S noted. RSR PE: Lungs: clear Cor.: S1S2 Abd.: soft Ext.: no edema Neuro.: alert Labs noted. ECG 04/01 noted: RSR,RBBB, LPHB, IMI, STTW changes Echo: NL overall EF with inferobasalar and apical akinesis, Mild AI. Objective - Vital Signs/Intake and Output Vital Signs (last 24 hours): Temp Pulse Resp BP Pulse Ox 97.9 F 82 18 114/63 95 04/05/17 06:00 04/05/17 06:00 04/05/17 06:00 04/05/17 06:00 04/05/17 06:00 Intake and Output: 04/05/17 04/05/17 06:59 18:59 Intake Total 1040 0 Output Total 400 200 Balance 640 -200 - Medications Medications: Current Medications Acetaminophen (Tylenol 325mg Tab) 650 mg PO Q4H PRN PRN Reason: Pain, Mild (1-3) Alprazolam (Xanax) 0.25 mg PO BID PRN PRN Reason: Anxiety Stop: 04/11/17 16:08 Aspirin (Aspirin Chewable) 81 mg PO DAILY [facility] Last Admin: 04/04/17 14:33 Dose: 81 mg Atorvastatin Calcium (Lipitor) 40 mg PO DAILY [facility] Last Admin: 04/04/17 09:34 Dose: 40 mg Clopidogrel Bisulfate (Plavix) 75 mg PO DAILY [facility] Last Admin: 04/04/17 14:33 Dose: 75 mg Docusate Sodium (Colace) 100 mg PO BID [facility] Last Admin: 04/04/17 18:25 Dose: Not Given Glipizide (Glucotrol Xl) 10 mg PO DAILY [facility] Last Admin: 04/03/17 09:12 Dose: 10 mg Insulin Human Regular (Humulin R Low) 0 units SC [facility] PRN Reason: Protocol Last Admin: 04/05/17 08:13 Dose: 2 units Isosorbide Dinitrate (Isordil) 20 mg PO QID [facility] Last Admin: 04/04/17 22:21 Dose: 20 mg Levofloxacin (Levaquin) 500 mg PO DAILY [facility] Last Admin: 04/04/17 09:34 Dose: 500 mg Magnesium Oxide (Mag-Ox) 400 mg PO BID [facility] Last Admin: 04/04/17 18:22 Dose: 400 mg Mesalamine (Pentasa) 500 mg PO QID [facility] Last Admin: 04/04/17 22:21 Dose: 500 mg Metoprolol Tartrate (Lopressor) 50 mg PO BID [facility] Last Admin: 04/04/17 18:22 Dose: 50 mg Polyethylene Glycol (Miralax) 17 gm PO BID PRN PRN Reason: Constipation Ramipril (Altace) 10 mg PO DAILY [facility] Last Admin: 04/04/17 09:34 Dose: 10 mg Zolpidem Tartrate (Ambien) 5 mg PO HS PRN PRN Reason: Insomnia - Labs Labs: 04/05/17 05:30 04/05/17 05:30 PT 11.7 Seconds (9.9-11.8) 03/31/17 21:00 INR 1.08 (0.93-1.08) 03/31/17 21:00 APTT 27.1 Seconds (23.7-30.8) 03/31/17 21:00 Assessment and Plan - Assessment and Plan (Free Text) Plan: Assessment: CP/+ trop/NSTEMI PCI LAD RADHA x3 04/04/17. CAD/old [place]/PCIs/Occluded C.A. HBP Diabetes RBBB Renal Stones GERD GB Surgery Plan OOB as ang. D/C home today on same admission meds with Plavix min. X 1 year. Resume diabetes meds today except metformin resume tomorrow. Out-Pt F/U: [place] 1 week, Black 2 weeks. Will consider cardiac rehab in ~ 2 weeks.
[2017-04-05] MEDS: Mesalamine ER Cap 500 MG PO SCH (09:58)
[2017-04-05] MEDS: levoFLOXacin 500 MG TAB PO SCH (09:58)
[2017-04-05] MEDS: Magnesium Oxide 400 mg Tab UD PO SCH (09:59)
[2017-04-05] MEDS: GlipiZIDE 10 mg SR Tab PO SCH (09:59)
[2017-04-05 10:00] VITALS: BP 140/52
[2017-04-05 10:22] VITALS: PULSE 88
--- NOTE | 2017-04-05 16:29 | DS ---
This is a 77-year-old male who had come into the hospital because of non-ST elevation myocardial infa rction. Please see the discharge summary that was done yesterday. The patient had a cardiac cathete rization and had stenting done. Please see the cardiac cath report. He is going to be discharged ho me to follow up as an outpatient. He was given antibiotics. PHYSICAL EXAMINATION: VITAL SIGNS: Temperature is 97.9, pulse of 82, blood pressure 114/63, respirations 18, O2 saturatio n 95%. GENERAL: The patient comfortable, in no acute distress. HEENT: Anicteric sclerae. Moist mucosa. NECK: No JVD or adenopathy. CARDIAC: S1/S2. No murmurs. No rubs. Regular. RESPIRATORY: Clear to auscultation bilaterally. No wheezes, rales, or rhonchi. Good air entry. ABDOMEN: Bowel sounds are positive, soft, nontender, and nondistended. EXTREMITIES: No edema. Has 1+ pulses. ASSESSMENT: 1. Non-ST elevation myocardial infarction. 2. Coronary artery disease status post percutaneous coronary intervention of left anterior descendin g with drug-eluting stent. 3. Dyslipidemia. 4. Community-acquired pneumonia. 5. Diabetes type 2. 6. Hypertension. PLAN: The patient is going to continue with his Altace. He is going to be on Ambien for sleep. He is on Levaquin for his antibiotics. He is on Plavix daily. The patient is on Lipitor for his dyslip idemia. He does have Plavix at home. He is going to be followed up with Dr. Jensen, his primary care doctor. I did speak to yesterday. CONDITION: Stable. ACTIVITIES: Increase as tolerated. FOLLOWUP: Follow with Dr. Jensen in 1-2 weeks. Follow up with Dr. Guerrier and Dr. Duran 1-2 weeks. Dominguez Garcia MD cc: [id number] TT: 04/05/2017 16:28:29 ln
== END 2017-04-05 11:50 | disposition home or self-care (01) | DRG 246 ==
LOC: ED 20:23 → ERH 04-01 00:59 → 2RNO 04-01 02:15 → OBSVTOIN 04-01 16:52 → 2RSO 04-04 16:16
PROVIDERS: ADMIT Internal Medicine Nephrology; ATTEND Internal Medicine Nephrology
PROC: 027036Z Dilation of Coronary Artery, One Artery with Three Drug-eluting Intraluminal Devices, Percutaneous Approach (ICD-10-PCS; principal; 2017-04-04)
PROC: 4A023N7 Measurement of Cardiac Sampling and Pressure, Left Heart, Percutaneous Approach (ICD-10-PCS; 2017-04-04)
PROC: B2051ZZ Plain Radiography of Left Heart using Low Osmolar Contrast (ICD-10-PCS; 2017-04-04)
PROC: B2011ZZ Plain Radiography of Multiple Coronary Arteries using Low Osmolar Contrast (ICD-10-PCS; 2017-04-04)
DX: I21.4 Non-ST elevation (NSTEMI) myocardial infarction (principal); J18.9 Pneumonia, unspecified organism; I25.10 Atherosclerotic heart disease of native coronary artery without angina pectoris; I25.82 Chronic total occlusion of coronary artery; E11.9 Type 2 diabetes mellitus without complications; I10 Essential (primary) hypertension; I45.10 Unspecified right bundle-branch block; N20.0 Calculus of kidney; K21.9 Gastro-esophageal reflux disease without esophagitis; E78.5 Hyperlipidemia, unspecified; I25.2 Old myocardial infarction; Z95.5 Presence of coronary angioplasty implant and graft; Z79.84 Long term (current) use of oral hypoglycemic drugs; Z79.82 Long term (current) use of aspirin